=== PATIENT | male | born 1960 | race Caucasian/White ===

== ENCOUNTER 2020-09-26 22:30 | Emergency (ER) | payer OTHER ==
[~2020-09-26] VITALS: Ht 180.3 cm; Wt 77.1 kg
[~2020-09-26 22:30] MED LIST: HYDACE5 PO; IBUP200 PO; PENVK500 PO; RXHYDACE PO
[2020-09-27] MEDS ORDERED: Amoxicillin500 MG PO (00:34)
== END 2020-09-27 01:05 | disposition home or self-care (01) ==
LOC: ER 22:30
DX: K04.7 Periapical abscess without sinus (principal); K02.9 Dental caries, unspecified; F17.200 Nicotine dependence, unspecified, uncomplicated; Z88.5 Allergy status to narcotic agent; Z79.899 Other long term (current) drug therapy
CPT/HCPCS: 99282; A9270